=== PATIENT | female | born 1985 | race Caucasian/White ===

== ENCOUNTER 2018-09-19 08:51 | Day surgery (SDC) | payer OTHER ==
[~2018-09-19] VITALS: Ht 157.5 cm; Wt 68.3 kg
[2018-09-19] VITALS (23 sets, daily range): BP systolic 113–149; BP diastolic 61–78; PULSE 81–118; RESP 12–20; Ht 157.5 cm; Wt 68.3 kg
[~2018-09-19 08:51] MED LIST: CEFAZOLIN 2 GM/50 ML (PMX) 50 ML IVPB ONE; SOD CHLORIDE 0.9% 1,000 ML IV SCH
--- NOTE | 2018-09-19 12:42 | PREAC ---
Date/Time of Note Date/Time of Note DATE: 09/19/18 TIME: 12:40 Anesthesia Eval and Record Evaluation Time Pre-Procedure Interview DATE: 09/19/18 TIME: 12:40 Age 33 Sex female NPO: 8 hrs Preoperative diagnosis right breast cancer Planned procedure right partial mastectomy and sentinel lymph node biopsy Past Medical History Past Medical History: None Surgery & Anesthesia Issues No known issue Meds Anticoagulation: No Beta Gera within 24 hr: No Reason Beta Gera not given: Pt. not on B-Gera No Active Prescriptions or Reported Meds Current Medications Sodium Chloride 1,000 ml @ 75 mls/hr [id number] IV ; Start 09/19/18 at 06:00; Stop 09/19/18 at 19:19 Meds reviewed: Yes Allergies Coded Allergies: No Known Allergy (Unverified , 09/19/18) Allergies Reviewed: Yes Labs/Studies Labs Reviewed: Reviewed by anesthesiologist Result Diagram: 09/19/18 1150 Laboratory Tests 09/19/18 11:50 test: Negative Pre-procedure Exam Last vitals Vital Signs Date Temp Pulse Resp B/P (MAP) Pulse Ox O2 O2 Flow FiO2 Time Delivery Rate 09/19/18 98.9 81 16 118/78 98 Room Air 12:02 (91) Airway: Adequate mouth opening, Adequate thyromental dist Mallampati: Mallampati II Teeth: Normal Lung: Normal Heart: Normal ASA Physical Status ASA physical status: 2 Emergency: None Planned Anesthetic General/MAC: LMA Planned Pain Management Parenteral pain med, Local by surgeon Pre-operative Attestations Prior to commencing anesthesia and surgery, the patient was re-evaluated, there was verification of: *The patient's identity *The results of appropriate recent lab work and preoperative vital signs *The above evaluation not changing prior to induction *Anesthetic plan, risk benefits, alternative and complications discussed with patient/family; questions answered; patient/family understands, accepts and wishes to proceed. PAM ULLOA Sep 19, 2018 12:42
[2018-09-19] MEDS ORDERED: PROPOFOL 20 ML ONE (12:43)
[2018-09-19] MEDS ORDERED: LIDOCAINE 2% (SDV) 5 ML INJ ONE (12:43)
[2018-09-19] MEDS ORDERED: CEFAZOLIN 1 GM INJ ONE (12:43)
[2018-09-19] MEDS ORDERED: HYDROmorphONE 2 MG/ML SYG ONE (12:43)
[2018-09-19] MEDS ORDERED: MIDAZOLAM 1 MG/ML 2 ML INJ ONE (12:43)
[2018-09-19] MEDS ORDERED: ISOSULFAN BLUE 1% 5 ML INJ SC ONE (12:56)
[2018-09-19] MEDS ORDERED: ONDANSETRON 4 MG INJ ONE (14:07)
[2018-09-19] MEDS ORDERED: DEXAMETHASONE 4 MG/ML 5 ML INJ ONE (14:07)
[2018-09-19] MEDS ORDERED: METOCLOPRAMIDE 10 MG INJ ONE (14:07)
[2018-09-19] MEDS ORDERED: EPHEDrine 25 MG/5 ML SYG ONE (14:28)
[2018-09-19] MEDS ORDERED: MEPERIDINE 25 MG INJ IV PRN (15:00)
[2018-09-19] MEDS ORDERED: HYDROmorphONE 1 MG/5 ML IV SYRINGE IV PRN ×2 (15:00)
[2018-09-19] MEDS ORDERED: ONDANSETRON 4 MG INJ IV PRN ×3 (15:00→19:00)
[2018-09-19] MEDS ORDERED: LABETALOL HCL 20MG INJ IV PRN (15:00)
[2018-09-19] MEDS ORDERED: OXYCODONE/ACETAMINOPHEN (5/325) TAB PO PRN ×3 (15:00→19:00)
--- NOTE | 2018-09-19 15:06 | SIPON ---
Date/Time of Note Date/Time of Note DATE: 09/19/18 TIME: 15:05 Operative Report Preoperative Diagnosis Invasive cancer right breast Postoperative Diagnosis Same Operation/Procedure Performed Right partial mastectomy and axillary dissection utilizing sentinel lymph node technique Surgeon see signature line business banking sales assistant Dr Schwartz Anesthesia: general Estimated blood loss: 10 - 50 ml's Transfusion Required none Specimen Right partial mastectomy specimen and sentinel lymph node with additional axillary nodes Grafts/Implants none Complications none JULIAN GARCIA MD Sep 19, 2018 15:06
[2018-09-19] MEDS ORDERED: ACETAMINOPHEN 1000MG/100ML IV 100 ML IVPB PRN (15:30)
[2018-09-19] MEDS ORDERED: morphine 2 MG INJ IV PRN (15:30)
--- NOTE | 2018-09-19 15:32 | PAC ---
Date/Time of Note Date/Time of Note DATE: 09/19/18 TIME: 15:32 Post-Anesthesia Notes Post-Anesthesia Note Last documented vital signs Vital Signs Date Temp Pulse Resp B/P (MAP) Pulse Ox O2 O2 Flow FiO2 Time Delivery Rate 09/19/18 98.9 81 16 118/78 98 Room Air 12:02 (91) Activity: WNL Respiratory function: WNL Cardiovascular function: WNL Mental status: Baseline Pain reasonably controlled: Yes Hydration appropriate: Yes Nausea/Vomiting absent: Yes [address] Sep 19, 2018 15:32
[2018-09-19] MEDS: HYDROmorphONE 1 MG/5 ML IV SYRINGE IV PRN ×2 (15:55→19:22)
--- NOTE | 2018-09-19 20:59 | OPR ---
DATE OF OPERATION: 09/19/2018 PREOPERATIVE DIAGNOSIS: Invasive cancer, right breast. POSTOPERATIVE DIAGNOSIS: Invasive cancer, right breast. OPERATION PERFORMED: Right partial mastectomy with axillary dissection utilizing sentinel lymph node technique. ANESTHESIA: General. ANESTHESIOLOGIST: Nurse tire mechanic, Ross Landrum. SURGEON: Juaerz Jalloh MD GENERAL DISTILLERY WORKER: Mikhail Schwartz MD INDICATIONS FOR PROCEDURE: The patient is an unfortunate 33-year-old female who noticed a lump in he r right breast. She underwent radiographic workup including biopsy which revealed approximately 2.5 cm poorly differentiated invasive cancer. She was counseled as to the risks versus benefits of surge ry. She consented and was scheduled for surgery. DESCRIPTION OF PROCEDURE: The patient was brought to the operating theater and placed under general anesthesia. The right breast and axillary regions were prepped and draped in usual sterile fashion. Approximately 3 to 4 mL of 1% Lymphazurin blue dye were then injected peritumorally. The breast was gently massaged for approximately 12 minutes. At this point, a 4 to 5 cm incision was made in the r ight axillary hairline. Subcutaneous tissue was dissected with cautery down through the clavipectora l fascia. Dye stained lymphatic was identified. It was traced to an obvious sentinel node, which wa s somewhat enlarged. This sentinel node and several other level 1 nodes in the same area were then r esected using the LigaSure device. Intraoperative analysis performed by attending pathologist, Dr. Alex Song, did not reveal definite evidence of metastatic disease. Therefore, no further nodes were taken. The specimen was sent for permanent pathologic analysis. The wound was irrigated. Mini mal bleeding was controlled with cautery. The skin was then reapproximated with 4-0 Vicryl suture in subcuticular fashion. Attention was then directed to performing the partial mastectomy. Palpable tumor was at the 10 o'rebecca ck location, periareolar area. A periareolar incision was made from the 3 o'clock location through t he 12 o'clock location to approximately the 8 o'clock location. Subcutaneous tissue was dissected wi th cautery. Skin edges were elevated with skin hooks and wide circumferential dissection of the tiss ue associated with the mass took place, taking great care to ensure adequate margin. Specimen was el evated off of the pectoralis major fascia, oriented and then sent for gross analysis of margins perfo rmed by attending pathologist, Dr. Mich Song. The margins were grossly clear. Specimen was th en sent for permanent pathologic analysis. The wound was irrigated. Minimal bleeding was controlled with cautery. The skin was then reapproximated with 4-0 Vicryl sutures in interrupted deep dermal f ashion followed by final skin approximation with 5-0 PDS sutures in subcuticular fashion. Dermabond was then applied to both incisions. Patient tolerated the procedure well. Estimated blood loss was 30 mL. There were no complications and the patient was transported in stable condition to the [facility] ry room. Dictated By: JUAREZ JALLOH MD TL/[place] Conf#: [id number] DID#: [id number]
[2018-09-19] MEDS: D5W-0.45 NACL + KCL 20 MEQ 1,000 ML IV SCH ×2 (21:20→23:06)
[2018-09-20 02:00] VITALS: BP 125/72; PULSE 100; RESP 18
--- NOTE | 2018-09-20 02:04 | HP ---
DATE OF ADMISSION: 09/19/2018 CHIEF COMPLAINT AND HISTORY OF PRESENT ILLNESS: The patient is a 33-year-old female who was diagnose d with invasive cancer of the right breast after core biopsy. The patient was brought into hospital today and underwent right partial mastectomy and sentinel lymph node biopsy. The patient had signifi cant chest wall pain and is being admitted for evaluation and management. The patient denied any his tory of nausea or vomiting. No history of headache, dizziness, or syncope. No history of abdominal pain. No history of focal weakness. No history of recent fever or chills. REVIEW OF SYSTEMS: Other than postoperative pain, rest of the review of systems were unremarkable. ALLERGIES: NO KNOWN DRUG ALLERGIES. SOCIAL HISTORY: No smoking or alcohol. FAMILY HISTORY: Noncontributory. MEDICATIONS PRIOR TO ADMISSION: None. PHYSICAL EXAMINATION: GENERAL: The patient is awake, alert, fairly oriented. VITAL SIGNS: Temperature 98.2, pulse 105, respirations 20, blood pressure 120/78, O2 saturation 99% on room air. HEENT: Atraumatic, normocephalic head. Conjunctivae are normal. Oropharynx clear. NECK: No mass. CHEST: Fairly clear. CV: S1, S2 normal, no murmur. ABDOMEN: Soft, nondistended, nontender. Bowel sounds present. EXTREMITIES: No leg edema. NEUROLOGIC: The patient is awake, alert, fairly oriented with no gross focal deficit. LABORATORY DATA: Done this morning, WBC 6.5, hemoglobin 15.8, platelet 219, sodium 144, potassium 4. 1, BUN 9, creatinine 0.6. Liver enzymes normal. IMPRESSION: Invasive cancer to right breast, status post right partial mastectomy and axillary disse ction. PLAN: The patient admitted on medical floor. The patient was started on IV fluids, clear liquid t, which will be advanced as tolerated. For pain control, the patient will be started on Tylenol, Pe rcocet, and IV morphine. We will use SCD for DVT prophylaxis. If patient continues to do well, she will be discharged home tomorrow. Dictated By: EASTON CAMACHO/[place] Conf#: [id number] DID#: [id number]
[2018-09-20] MEDS: D5W-0.45 NACL + KCL 20 MEQ 1,000 ML IV SCH ×2 (05:56→15:06)
[2018-09-20 07:15] VITALS: BP 112/60; PULSE 71; RESP 18
--- NOTE | 2018-09-20 08:19 | PN ---
Date/Time of Note Date/Time of Note DATE: 09/20/18 TIME: 08:16 Assessment/Plan VTE Prophylaxis Risk score (from Ns)>0 risk: 8 SCD applied (from Ns): Yes SCD contraindicated: other Pharmacological prophylaxis: other Lines/Catheters IV Catheter Type (from Nrsg): Peripheral IV Assessment/Plan Assessment/Plan Invasive cancer to right breast status post right partial mastectomy and axillary dissection -IV fluids, clear liquid diet, which will be advanced as tolerated -Tylenol, Percocet, and IV morphine for pain control -SCD for DVT prophylaxis. Patient seen in collaboration with Dr hoff Result Diagram: 09/19/18 1150 09/19/18 1150 Results 24hrs Laboratory Tests Test 09/19/18 11:50 White Blood Count 6.5 Red Blood Count 5.12 Hemoglobin 15.3 Hematocrit 46.0 Mean Corpuscular Volume 89.8 Mean Corpuscular Hemoglobin 29.9 Mean Corpuscular Hemoglobin Concent 33.3 Red Cell Distribution Width 12.0 Platelet Count 219 Mean Platelet Volume 11.3 H Immature Granulocytes % 0.200 Neutrophils % 65.6 Lymphocytes % 27.0 Monocytes % 6.5 Eosinophils % 0.5 Basophils % 0.2 Nucleated Red Blood Cells % 0.0 Immature Granulocytes # 0.010 Neutrophils # 4.2 Lymphocytes # 1.7 Monocytes # 0.4 Eosinophils # 0.0 Basophils # 0.0 Nucleated Red Blood Cells # 0.0 Prothrombin Time 12.5 Prothrombin Time Ratio 1.0 INR International Normalized Ratio 0.92 Activated Partial Thromboplast Time 27.2 Sodium Level 144 Potassium Level 4.1 Chloride Level 108 Carbon Dioxide Level 24 Anion Gap 12 Blood Urea Nitrogen 9 Creatinine 0.67 Est Glomerular Filtrat Rate mL/min > 60 Glucose Level 90 Calcium Level 9.7 Total Bilirubin 0.6 Direct Bilirubin 0.00 Indirect Bilirubin 0.6 Aspartate Amino Transf (AST/SGOT) 30 Alanine Aminotransferase (ALT/SGPT) 35 Alkaline Phosphatase 57 Total Protein 9.1 H Albumin 4.9 Globulin 4.20 H Albumin/Globulin Ratio 1.16 Subjective 24 Hr Interval Summary Eyes: no complaints Respiratory: no complaints Cardiovascular: no complaints Gastrointestinal: no complaints Genitourinary: no complaints Musculoskeletal: no complaints Skin: no complaints Neurologic: no complaints Endocrine: no complaints Lymphatic: adenopathy Psychological: nl mood/affect Immunologic: no complaints Exam/Review of Systems Exam Vitals Vital Signs Date Temp Pulse Resp B/P (MAP) Pulse Ox O2 O2 Flow FiO2 Time Delivery Rate 09/20/18 98.5 71 18 112/60 98 07:15 (77) 09/20/18 Room Air 02:00 09/19/18 6.0 15:50 Intake and Output 09/19/18 09/19/18 09/20/18 1414:59 22:59 06:59 IntakeIntake Total 1700 ml 100 ml 1000 ml OutputOutput Total 5 ml BalanceBalance 1695 ml 100 ml 1000 ml Constitutional: alert, oriented Psych: nl mood/affect Head: atraumatic Eyes: nl lids, nl sclera ENMT: nl external ears & nose Neck: non-tender Respiratory: clear to auscultation Cardiovascular: nl pulses, other (s1s2) Gastrointestinal: soft, non-tender Musculoskeletal: nl extremities to inspection Extremities: normal pulses Neurological: nl mental status, nl speech Skin: other (sp right breast sx- DDI ) Results Results 24hrs Laboratory Tests Test 09/19/18 11:50 White Blood Count 6.5 Red Blood Count 5.12 Hemoglobin 15.3 Hematocrit 46.0 Mean Corpuscular Volume 89.8 Mean Corpuscular Hemoglobin 29.9 Mean Corpuscular Hemoglobin Concent 33.3 Red Cell Distribution Width 12.0 Platelet Count 219 Mean Platelet Volume 11.3 H Immature Granulocytes % 0.200 Neutrophils % 65.6 Lymphocytes % 27.0 Monocytes % 6.5 Eosinophils % 0.5 Basophils % 0.2 Nucleated Red Blood Cells % 0.0 Immature Granulocytes # 0.010 Neutrophils # 4.2 Lymphocytes # 1.7 Monocytes # 0.4 Eosinophils # 0.0 Basophils # 0.0 Nucleated Red Blood Cells # 0.0 Prothrombin Time 12.5 Prothrombin Time Ratio 1.0 INR International Normalized Ratio 0.92 Activated Partial Thromboplast Time 27.2 Sodium Level 144 Potassium Level 4.1 Chloride Level 108 Carbon Dioxide Level 24 Anion Gap 12 Blood Urea Nitrogen 9 Creatinine 0.67 Est Glomerular Filtrat Rate mL/min > 60 Glucose Level 90 Calcium Level 9.7 Total Bilirubin 0.6 Direct Bilirubin 0.00 Indirect Bilirubin 0.6 Aspartate Amino Transf (AST/SGOT) 30 Alanine Aminotransferase (ALT/SGPT) 35 Alkaline Phosphatase 57 Total Protein 9.1 H Albumin 4.9 Globulin 4.20 H Albumin/Globulin Ratio 1.16 Medications Medication Current Medications Ondansetron HCl (Zofran Inj) 4 mg Q6H PRN IV NAUSEA AND/OR VOMITING; Start 09/19/18 at 15:30 Potassium Chloride/Dextrose/ Sod Cl 1,000 ml @ 125 mls/hr Q8H IV Last administered on 09/20/18at 05:56; Admin Dose 125 MLS/HR; Start 09/19/18 at 15:06 Morphine Sulfate (morphine) 2 mg Q1H PRN IV PAIN Last administered on 09/19/18at 21:04; Admin Dose 2 MG; Start 09/19/18 at 15:30 Acetaminophen 100 ml @ 400 mls/hr Q6H PRN IVPB PAIN; Start 09/19/18 at 15:30; Stop 09/20/18 at 15:29 Oxycodone/ Acetaminophen (Percocet (5/ 325)) 1 tab Q4H PRN PO MODERATE PAIN LEVEL 4-6; Start 09/19/18 at 19:00 Ondansetron HCl (Zofran Inj) 4 mg Q4H PRN IV NAUSEA AND/OR VOMITING; Start 09/19/18 at 19:00 APOLINAR BRIGHT Sep 20, 2018 08:19
--- NOTE | 2018-09-20 08:21 | PDOCDIS ---
Discharge Instructions CONDITION [id number] Patient Condition: [id number] Stable HOME CARE INSTRUCTIONS: [id number] Diet Instructions: [id number] Regular ACTIVITY: [id number] Activity Restrictions: [id number] Slowly Increase Activity Rest between Activity Avoid heavy lifting Do not Drive Do not operate Machinery Do not operate Power Tool Avoid Heavy Housework [id number] Bathing Restrictions: Isonf7g Sponge Bath FOLLOW UP/APPOINTMENTS Follow-up Plan FU with Primary MD x 1 week Fu withSURGERY as directed Call 911 or go to the nearest hospital if symptoms get worse Patient verbalized understanding dc instructions poppy mcwilliams staff APOLINAR BRIGHT Sep 20, 2018 08:21
[2018-09-20] MEDS ORDERED: OXYC-438 PO (08:23)
[2018-09-20] MEDS ORDERED: DOCU-144 PO (08:24)
--- NOTE | 2018-09-20 09:54 | PN ---
DATE: 09/20/2018 Postop day #1 status post right breast partial mastectomy with axillary dissection for cancer of righ t breast. SUBJECTIVE: Feels okay. Pain is under control. No nausea, no vomiting. Has been out of bed to [facility] around. OBJECTIVE: GENERAL: Awake, alert, oriented. VITAL SIGNS: Temperature maximum 98.5, heart rate 71, respiration 18, blood pressure is 112/60, satu ration 98% on room air. HEART: Regular. LUNGS: Clear. CHEST: Dressing is intact. The Bias dressing is not too tight. The patient can move both upper ext remities in full range. There is no Pepe-Dee drain. ASSESSMENT AND PLAN: Postop day #1. The patient is quite stable. The patient can be discharged [facility] today with prescription for pain medication. The patient was instructed to call Dr. Jalloh' office today, make an appointment for followup. All the questions were answered. Dictated By: VIVIAN DAVILA/[place] Conf#: [id number] DID#: [id number]
[2018-09-20 14:36] VITALS: BP 120/65; PULSE 79; RESP 18
--- NOTE | 2018-09-20 15:16 | DS ---
Date/Time of Note Date/Time of Note DATE: 09/20/18 TIME: 15:16 Discharge Summary Admission/Discharge Info Admit Date/Time Discharge Date/Time Discharge Diagnosis Invasive cancer to right breast status post right partial mastectomy and axillary dissection Patient seen in collaboration with Dr hoff Patient Condition: Stable Hospital Course The patient is a 33-year-old female who was diagnosed with invasive cancer of the right breast after core biopsy. The patient was brought into hospital today and underwent right partial mastectomy and sentinel lymph node biopsy. The patient had significant chest wall pain and is being admitted for evaluation and management Constitutional: nad, VSS, alert, oriented Psych: nl mood/affect Head: atraumatic Eyes: nl lids, nl sclera ENMT: nl external ears & nose Neck: non-tender Respiratory: clear to auscultation Cardiovascular: nl pulses, other (s1s2) Gastrointestinal: soft, non-tender Musculoskeletal: nl extremities to inspection Extremities: normal pulses Neurological: nl mental status, nl speech Skin: other (sp right breast sx- DDI ) Home Meds Active Scripts Docusate Sodium* (Colace*) 100 Mg Capsule, 100 MG PO DAILY, #20 CAP Prov:APOLINAR BRIGHT 09/20/18 Oxycodone HCl/Acetaminophen (Oxycodone-Acetaminophen 5-325) 1 Each Tablet, 1 TAB PO Q6 PRN for MODERATE PAIN LEVEL 4-6, #20 TAB Prov:APOLINAR BRIGHT 09/20/18 Follow-up Plan FU with Primary MD x 1 week Fu withSURGERY as directed Call 911 or go to the nearest hospital if symptoms get worse Patient verbalized understanding dc instructions poppy mcwilliams staff Primary Care Provider Not On Staff Doctor Time spent on discharge: > 30 minutes APOLINAR BRIGHT Sep 20, 2018 15:16
== END 2018-09-20 17:10 | disposition home or self-care (01) ==
LOC: SDS 08:51 → UNDOADMIN 15:07 → REC 15:07 → SDS 15:07 → MS1 15:51 → REC 19:40 → MS1 19:40 → SDS 09-20 17:10
PROVIDERS: ATTEND Surgery Surgical Oncology
DX: C50.911 Malignant neoplasm of unspecified site of right female breast (principal)
CPT/HCPCS: 19301; 38500; 38792; 80053; 84703; 85025; 85610; 85730; 88307; 88331; J0690; J1100; J1170; J2250; J2270; J2405; J2765; J3480; Z7512; Z7610; Q9968